=== PATIENT | female | born 1965 | race Two or more races ===

== ENCOUNTER 2019-10-14 21:43 | Inpatient (IN) | payer OTHER ==
[~2019-10-14] VITALS: Ht 165.1 cm; Wt 74.8 kg
[2019-10-14] MEDS ORDERED: ACTIVATED CHARCOAL 25 GM/120 ML TUBE PO ONE (22:00)
--- NOTE | 2019-10-14 22:01 | NUR ---
PT BENNETT 88 & [employer] FROM HOME C/O "TOOK NORCO 5, BENADRYL 25 MG & ASPIRIN" PT DENIES SI AND HI. STATES SHE DOES NOT KNOW HOW MANY PILL SHE TOOK. RR EVEN AND UNLABORED, NO ACUTE DISTRESS NOTED. -N/V. [employer] AT BEDSIDE SPEAKING TO PT.
[2019-10-14] MEDS ORDERED: ACTIVATED CHARCOAL 25 GM/120 ML TUBE ONE (22:05)
[2019-10-14 22:07] LABS: BASOPHILS % (AUTO) 0.7 % (0.0-2.0); EOSINOPHILS % (AUTO) 2.1 % (0.0-6.0); HEMATOCRIT 42 % (33-45); LYMPHOCYTES # (AUTO) 1.5 /CMM (0.8-4.8); LYMPHOCYTES % (AUTO) 26.8 % (20.0-44.0); MEAN CORPUSCULAR HGB CONC 33 g/dl (31.0-36.0); MEAN CORPUSCULAR VOLUME 96 fL (82-100); MONOCYTES # (AUTO) 0.8 /CMM (0.1-1.30); MONOCYTES % (AUTO) 13.2 % (2.0-12.0); NEUTROPHILS # (AUTO) 3.3 /CMM (1.8-8.9); NEUTROPHILS % (AUTO) 57.2 % (43.0-81.0); PLATELET COUNT (AUTO) 208 /CMM (150-450); RED BLOOD CELL COUNT(AUTO) 4.38 MIL/uL (4.0-5.2); WHITE BLOOD COUNT (AUTO) 5.8 K/uL (4.3-11.0)
--- NOTE | 2019-10-14 22:08 | NUR ---
PT PROVIDED URINE SAMPLE. SENT TO LAB.
[2019-10-14 22:17] LABS: APPEARANCE,URINE Clear (CLEAR); BILIRUBIN,URINE Negative (NEGATIVE); BLOOD, URINE Negative Ery/uL (NEGATIVE); COLOR,URINE Yellow (YELLOW); KETONES,URINE Negative (NEGATIVE); LEUKOCYTE ESTERASE ,URINE Negative (NEGATIVE); NITRITE, URINE Negative (NEGATIVE); PH,URINE 5.5 (5.0-8.0); PROTEIN,URINE Negative (NEGATIVE); UGLUCOSE Negative (NEGATIVE)
[2019-10-14 22:23] LABS: ALBUMIN 4.4 g/dL (3.4-5.0); BILIRUBIN,DIRECT 0.1 mg/dL (0.0-0.2); BILIRUBIN,TOTAL 0.4 mg/dL (0.2-1.0); CALCIUM, SERUM 9.2 mg/dL (8.5-10.1); CREATININE 0.9 mg/dL (0.6-1.3); POTASSIUM 3.6 mmol/L (3.5-5.1); TOTAL PROTEIN, SERUM 8.3 g/dL (6.4-8.2)
[2019-10-14 22:24] LABS: SALICYLATE 1.4 mg/dL (2.8-20.0)
[2019-10-14] MEDS ORDERED: ACETYLCYSTEINE IV 6,000 MG/30 ML VIAL IV ONE (22:43)
[2019-10-14] MEDS ORDERED: D5W IV ONE (23:00)
[2019-10-14] MEDS ORDERED: ACETYLCYSTEINE IV ONE (23:00)
[2019-10-14] MEDS ORDERED: IV NS 0.9% 2,000 ML IV ONE (23:00)
--- NOTE | 2019-10-14 23:12 | NUR ---
PT SAT 93% ON ROOM AIR. PER MD PLACED ON 2L NC SAT 99% NOW. VSS.
--- NOTE | 2019-10-14 23:14 | NUR ---
PT RESTING IN BED, DENIES PAIN, STATES SHE FEELS SLEEPY. VSS.
[2019-10-14] MEDS ORDERED: AMLO2.5T4 PO (23:22)
[2019-10-14] MEDS ORDERED: CHOL400T11 GT (23:22)
[2019-10-14] MEDS ORDERED: CITA10TA9 PO (23:22)
[2019-10-14] MEDS ORDERED: CITA10SO3 PO (23:22)
--- NOTE | 2019-10-14 23:22 | NUR ---
MED RECON DONE. PT UNABLE TO GIVE DOSE OF MEDS.
--- NOTE | 2019-10-14 23:44 | NUR ---
SPOKE TO BROTHER, UPDATED W/ PLAN OF CARE.
--- NOTE | 2019-10-14 23:58 | NUR ---
PATIENT AMBULATED TO THE RESTROOM WITH ASSISTANCE
--- NOTE | 2019-10-15 | NUR ---
DR. DE ANDA ON PHONE WITH DR. RODRIGUEZ
--- NOTE | 2019-10-15 00:13 | NUR ---
TELE BED 308-0
--- NOTE | 2019-10-15 00:23 | NUR ---
REPORT GIVEN TO MITALI GIANG FOR KIRAN
[2019-10-15 00:30] VITALS: BP 118/73
[2019-10-15] MEDS ORDERED: ACETYLCYSTEINE IV 3,400 MG in IV D5W 500 ML IV SCH (00:30)
[2019-10-15] MEDS ORDERED: Z GUARD REMEDY 2 OZ OINT TP PRN (00:30)
[2019-10-15] MEDS ORDERED: ZOLPIDEM TARTRATE 5 MG TABLET PO PRN (00:30)
[2019-10-15] MEDS ORDERED: MAG HYDROX/AL HYDROX/SIMETH 30 ML UDC PO PRN (00:30)
[2019-10-15] MEDS ORDERED: MAGNESIUM HYDROXIDE 30 ML UDC PO PRN (00:30)
--- NOTE | 2019-10-15 00:34 | NUR ---
PT TRANSFERED PER ACLS PROTOCOL
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
--- NOTE | 2019-10-15 02:25 | NUR ---
TELE/RN NOTES: PT. STARTED THROWING UP CHARCOAL BLACK EMESIS DUE TO ADMINISTRATION OF ACTIVATED CHARCOAL 25MG IN ER EARLIER. CHARGE NURSE AWARE. NO C/O OF PAIN AT THIS TIME.
[2019-10-15] MEDS ORDERED: ACETYLCYSTEINE 20% SOLN 800 MG/4 ML VIAL ONE (02:40)
[2019-10-15] MEDS ORDERED: ACETYLCYSTEINE 10% SOLN 400 MG/4 ML VIAL ONE (02:41)
[2019-10-15 04:00] VITALS: BP 122/78
--- NOTE | 2019-10-15 04:09 | NUR ---
TELE/ RN NOTES: POISON CONTROL CALLED REGARDING PT'S CURRENT CONDITION AND HER LAB LEVELS. RECOMMENDED TYLENOL LEVELS, LIVER FUNCTION AND COAGS LAB DRAW. DR. RODRIGUEZ MADE AWARE.
--- NOTE | 2019-10-15 04:22 | NUR ---
TELE/RN NOTES: DR. RODRIGUEZ ORDERED BMP, CBC, INR, LIVER FUNCTION AND ACETAMINOPHEN LEVELS.
[2019-10-15] MEDS ORDERED: ACETYLCYSTEINE IV 6,800 MG in IV D5W 1,000 ML IV SCH (04:30)
[2019-10-15 06:33] LABS: BASOPHILS % (AUTO) 0.2 % (0.0-2.0); EOSINOPHILS % (AUTO) 0.1 % (0.0-6.0); HEMATOCRIT 40 % (33-45); HEMOGLOBIN 13.2 g/dL (11.5-14.8); LYMPHOCYTES # (AUTO) 0.4 /CMM (0.8-4.8); LYMPHOCYTES % (AUTO) 8.4 % (20.0-44.0); MEAN CORPUSCULAR HGB CONC 33 g/dl (31.0-36.0); MEAN CORPUSCULAR VOLUME 96 fL (82-100); MONOCYTES # (AUTO) 0.4 /CMM (0.1-1.30); MONOCYTES % (AUTO) 8.5 % (2.0-12.0); NEUTROPHILS % (AUTO) 82.8 % (43.0-81.0); PLATELET COUNT (AUTO) 186 /CMM (150-450); RED BLOOD CELL COUNT(AUTO) 4.11 MIL/uL (4.0-5.2); WHITE BLOOD COUNT (AUTO) 4.8 K/uL (4.3-11.0)
[2019-10-15 06:41] LABS: CALCIUM, SERUM 7.5 mg/dL (8.5-10.1); CREATININE 0.7 mg/dL (0.6-1.3)
[2019-10-15 06:46] LABS: ALBUMIN 3.8 g/dL (3.4-5.0); BILIRUBIN,DIRECT 0.1 mg/dL (0.0-0.2); BILIRUBIN,TOTAL 0.3 mg/dL (0.2-1.0); TOTAL PROTEIN, SERUM 7.5 g/dL (6.4-8.2)
--- NOTE | 2019-10-15 06:58 | NUR ---
TELE/RN CLOSING NOTES: PT. IN BED RESTING COMFORTABLY. ON 2 L OF OXYGEN VIA NC. SATURATING AT 98%. NO SOB NOTED, NO S/S OF ACUTE DISTRESS, BREATHING EVEN AND UNLABORED. REMAINS A/OX3-4, VERBALLY RESPONSIVE AND ABLE TO MAKE NEEDS KNOWN. STILL LETHARGIC AND DROWSY. NO SIGNIFICANT CHANGES IN CONDITION. DENIES PAIN AT THIS TIME. ON TELE MONITORING WITH READING OF SR HR ON THE 80S. ABLE TO AMBULATE WITH UNSTEADY GAIT. REQUIRES ASSISTANCE. MAINTAINED NPO STATUS. IV PRESENT ON THE RIGHT AC #20G AND LEFT WRIST #18G. CURRENTLY INFUSING MUCOMYST 3400MG IN D5W 500ML. VSS. DENIES SI AND HI. SITTER PRESENT AT BEDSIDE AT THIS TIME. ON ASPIRATION PRECAUTIONS, BED ALARM ON. SAFETY MEASURES INITIATED. BED IN LOW, LOCKED POSITION WITH HOB ON SEMI FOWLERS. SR UPX2. CALL LIGHT WITHIN REACH. WILL ENDORSE TO DAY SHIFT RN FOR KIRAN.
[2019-10-15] MEDS ORDERED: BECL10.6 INH (07:16)
[2019-10-15] MEDS ORDERED: AMLO10TA7 PO (07:16)
[2019-10-15] MEDS ORDERED: FAMO40TA7 PO (07:16)
[2019-10-15] MEDS ORDERED: CITA20TA16 PO (07:16)
[2019-10-15] MEDS ORDERED: LEVO88TA5 PO (07:16)
[2019-10-15] MEDS ORDERED: ERGO500014 PO (07:16)
[2019-10-15] MEDS ORDERED: PANTOPRAZOLE 40 MG TABLET.DR PO SCH (07:30)
--- NOTE | 2019-10-15 07:30 | NUR ---
RN OPENING NOTE Patient is resting in bed, A/O x2-3, showing no signs of acute distress or SOB, saturating >95% on 2L NC. IV lines are clean and intact, flushing well. Patient stated she has no thoughts of killing herself and stated, "I did something very stupid. I don't know why I did it." Sitter is at the bedside. Bed is in lowest position, side rails x3 in upright position, call light is within reach, fall safety and aspiration precautions enforced. Will continue with plan of care.
[2019-10-15 08:00] VITALS: BP 118/69
[2019-10-15] MEDS ORDERED: D5W IV ONE (08:00)
[2019-10-15] MEDS ORDERED: ACETYLCYSTEINE IV ONE (08:00)
--- NOTE | 2019-10-15 10:43 | NUR ---
RN NOTE Patient had episode of both hands hyperflexed, stiff, and patient reports tingling in both hands, similar to Trousseau's sign, that resolved after 4 minutes. Bilateral feet shows no abnormality, patient reports she feels sensation and no tingling in her feet. Her speech is intact, no change in LOC, no weakness on either side of her upper and lower extremities. Vital signs are stable, jessica MARTE.
[2019-10-15] MEDS: PANTOPRAZOLE 40 MG VIAL IV SCH (10:53)
[2019-10-15] MEDS: ONDANSETRON HCL/PF 4 MG/2 ML VIAL IVP PRN ×2 (11:01→17:08)
[2019-10-15] MEDS: POTASSIUM CL. PREMIX PERIPHER. 50 ML IV SCH ×6 (11:02→16:20)
[2019-10-15] MEDS: IV D5/0.45 NACL 1,000 ML IV PRN (11:02)
[2019-10-15 12:00] VITALS: BP 123/85
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
[2019-10-15 16:00] VITALS: BP 135/84
--- NOTE | 2019-10-15 19:52 | NUR ---
RN CLOSING NOTE Patient is resting in bed, A/O x4 showing no signs of acute distress or SOB, saturating >95% on 2L NC. Patient has no complaints of pain throughout shift, only N/V, IV Zofran given PRN as ordered. IV line in the RAC #20g is clean and intact, LFA #18g is clean and intact running Acetedote 7,500 mg @ 64.844 ml/hour for 16 hours. Patient is ambulatory with standy-by assist to the bathroom. Sitter is at the bedside. Bed is in lowest position, side rails x3 in upright position , call light is within reach and patient is aware of how to call for assistance when needed. Will endorse to material handler 2nd shift.
--- NOTE | 2019-10-15 19:53 | NUR ---
TELE/RN OPENING NOTES: RECEIVED A PT. IN BED A/OX4, AWAKE, VERBALLY RESPONSIVE AND ABLE TO MAKE NEEDS KNOWN. ON 2 L OF OXYGEN VIA NC. SATURATING AT 98%. NO SOB NOTED, NO S/S OF ACUTE DISTRESS, BREATHING EVEN AND UNLABORED. DENIES PAIN AT THIS TIME. ON TELE MONITORING WITH READING OF SR HR ON THE 80S. AMBULATORY WITH STEADY GAIT. SITTER AT BEDSIDE. PER PT "I FEEL BETTER THAN YESTERDAY" IV PRESENT ON THE RIGHT AC #20G AND LEFT WRIST #18G. WITH ACETADOTE 7,500MG RUNNING AT @ 64.844MLS/HR. DENIES SI AND HI. ON ASPIRATION PRECAUTIONS, BED ALARM ON. SAFETY MEASURES INITIATED. BED IN LOW, LOCKED POSITION WITH HOB ON SEMI FOWLERS. SR UPX2. CALL LIGHT WITHIN REACH. WILL CONTINUE TO MONITOR PT. ACCORDINGLY AND CONTINUE PLAN OF CARE.
[2019-10-15 20:00] VITALS: BP 141/86
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
[2019-10-15] MEDS: CITALOPRAM HYDROBROMIDE 10 MG TABLET PO SCH (21:40)
--- NOTE | 2019-10-15 22:00 | NUR ---
MS/RN NOTES: POISON CONTROL CALLED TO GET UPDATES REGARDING PT'S CONDITION AND LABS. PER POISON CONTROL, "WHEN THE 3RD BAG OF ACETADOTE INFUSED COMPLETELY, WE RECOMMEND REPEAT AST AND ALT, TYLENOL LEVELS, LIVER FX TEXT, AND INR. IF THERE NO IMPROVEMENT, WE RECOMMEND ANOTHER 16 HR BAG OF ACETADOTE." DR. RODRIGUEZ INFORMED. WILL WAIT FOR ORDERS. Addendum: 10/16/19 at 0105 by MITALI EVANS RN AVANI/PADMAJA NOTES
[2019-10-16] VITALS: BP_SYST 151; BP_DIAS 57; BP_DIAS 87
--- NOTE | 2019-10-16 01:18 | NUR ---
TELE/RN NOTES: DR. RODRIGUEZ ORDERED FOR LABS IN THE MORNING. (ACETAMINOPHEN LEVELS, INR).
[2019-10-16] MEDS: IV D5/0.45 NACL 1,000 ML IV PRN ×3 (03:55→20:06)
[2019-10-16 04:00] VITALS: BP 142/82
[2019-10-16 07:05] LABS: BASOPHILS % (AUTO) 0.2 % (0.0-2.0); EOSINOPHILS % (AUTO) 0.9 % (0.0-6.0); HEMATOCRIT 41 % (33-45); HEMOGLOBIN 13.9 g/dL (11.5-14.8); LYMPHOCYTES # (AUTO) 0.8 /CMM (0.8-4.8); LYMPHOCYTES % (AUTO) 15.9 % (20.0-44.0); MEAN CORPUSCULAR HGB CONC 34 g/dl (31.0-36.0); MEAN CORPUSCULAR VOLUME 96 fL (82-100); MONOCYTES # (AUTO) 0.7 /CMM (0.1-1.30); MONOCYTES % (AUTO) 14.4 % (2.0-12.0); NEUTROPHILS # (AUTO) 3.4 /CMM (1.8-8.9); NEUTROPHILS % (AUTO) 68.6 % (43.0-81.0); PLATELET COUNT (AUTO) 186 /CMM (150-450); RED BLOOD CELL COUNT(AUTO) 4.29 MIL/uL (4.0-5.2); WHITE BLOOD COUNT (AUTO) 4.9 K/uL (4.3-11.0)
[2019-10-16 07:18] LABS: THYROID STIMULATING HORMONE 2.329 uIU/mL (0.358-3.74)
[2019-10-16 07:20] LABS: BILIRUBIN,DIRECT 0.2 mg/dL (0.0-0.2); BILIRUBIN,TOTAL 0.8 mg/dL (0.2-1.0); CALCIUM, SERUM 8.9 mg/dL (8.5-10.1); CREATININE 0.7 mg/dL (0.6-1.3); MAGNESIUM 1.7 mg/dL (1.8-2.4); PHOSPHORUS 3.2 mg/dL (2.5-4.9); TOTAL PROTEIN, SERUM 7.9 g/dL (6.4-8.2)
--- NOTE | 2019-10-16 07:21 | NUR ---
TELE/RN CLOSING NOTES: PT. IN BED RESTING COMFORTABLY. SATURATING AT 97% ON 2 L OF OXYGEN VIA NC. NO SOB NOTED, NO S/S OF ACUTE DISTRESS, BREATHING EVEN AND UNLABORED. REMAINS A/OX4, VERBALLY RESPONSIVE AND ABLE TO MAKE NEEDS KNOWN. DENIES PAIN AT THIS TIME. ON TELE MONITORING WITH READING OF SR HR ON THE 60S. ABLE TO AMBULATE WITH STEADY GAIT. IV PRESENT ON THE RIGHT AC #20G AND LEFT WRIST #18G. IVF RUNNING AT 125MLS/HR. DENIES SI AND HI. SITTER PRESENT AT BEDSIDE. ON ASPIRATION PRECAUTIONS, BED ALARM ON. SAFETY MEASURES KEPT IN PLACE. BED IN LOW, LOCKED POSITION WITH HOB ON SEMI FOWLERS. SR UPX2. CALL LIGHT WITHIN REACH. WILL ENDORSE TO DAY SHIFT RN FOR KIRAN.
[2019-10-16 07:38] LABS: POTASSIUM 2.3 mmol/L (3.5-5.1)
--- NOTE | 2019-10-16 07:50 | NUR ---
Kunal (Pharmacist of Poison Control) called and checked on the patient's lab results:Tylenol level :zero level and PT 10.2 and INR 0.98 with no new order.
[2019-10-16 08:00] VITALS: BP 126/77
--- NOTE | 2019-10-16 08:00 | NUR ---
TELE/RN AM NOTES: RECEIVED A PT. IN BED A/OX4, AWAKE, VERBALLY RESPONSIVE AND ABLE TO MAKE NEEDS KNOWN. SATURATING AT 99% ON ROOM AIR. NO SOB NOTED, NO S/S OF ACUTE DISTRESS, BREATHING EVEN AND UNLABORED. DENIES PAIN AT THIS TIME. ON TELE MONITORING WITH READING OF SB HR 58. AMBULATORY WITH STEADY GAIT. SITTER AT BEDSIDE. IVFD5 1/2 NS AT 125 ML/HR INFUSING WELL ON THE RIGHT AC #20G AND LEFT WRIST #18G. WITH 1:1 SITTER. DENIES SI AND HI. ON ASPIRATION PRECAUTIONS, BED ALARM ON. SAFETY MEASURES INITIATED. BED IN LOW, LOCKED POSITION WITH HOB ON SEMI FOWLERS. SR UPX2. CALL LIGHT WITHIN REACH. WILL CONTINUE TO MONITOR PT. ACCORDINGLY AND CONTINUE PLAN OF CARE.
[2019-10-16] MEDS: PANTOPRAZOLE 40 MG VIAL IV SCH (09:23)
[2019-10-16] MEDS: POTASSIUM CL. PREMIX PERIPHER. 50 ML IV SCH ×6 (09:23→16:56)
--- NOTE | 2019-10-16 11:51 | NUR ---
PT CAN'T TOLERATE POTASSIUM IV INFUSION AND ADJUSTED IV RATE ACCORDING TO PATIENT'S COMFORT.
[2019-10-16] MEDS: ONDANSETRON HCL/PF 4 MG/2 ML VIAL IVP PRN (14:00)
--- NOTE | 2019-10-16 14:00 | NUR ---
PT ATE 100% OF HER LUNCH TRAY (DOUBLE PORTION) REQUESTED AND PT VOMITED THE FOOD SHE ATE.ON CLEAR LIQUIDS ONLY. GAVE ZOFRAN IV FOR NAUSEA AND VOMITING.
[2019-10-16 16:00] VITALS: BP 135/78
[2019-10-16] MEDS: Magnesium 1GM/D5W 100ML PREMIX 100 ML IV SCH ×2 (18:22→19:48)
--- NOTE | 2019-10-16 18:56 | NUR ---
FIRST BAG OF MAGNESIUM STILL INFUSING WELL.WILL ADMINISTER 2ND BAG OF MAGNESIUM IV TO THE SECURITY RISK ANALYST.
[2019-10-16 20:00] VITALS: BP 139/83
--- NOTE | 2019-10-16 20:00 | NUR ---
RN NOTES RECEIVED PT. AWAKE ON BED, A/OX3, SITTER AT BEDSIDE, CALM AND COOPERATIVE, DENIES PAIN, NO SOB, CALL LIGHT WITHIN REACH, [id number], CONTINUE TO MONITOR
[2019-10-16] MEDS: CITALOPRAM HYDROBROMIDE 10 MG TABLET PO SCH (21:27)
--- NOTE | 2019-10-16 22:45 | NUR ---
RN NOTES NEW IV LINE INSERTED ON THE RIGHT FOREARM # 20
[2019-10-17] VITALS: BP 134/75
[2019-10-17 04:00] VITALS: BP 132/73
[2019-10-17] MEDS: IV D5/0.45 NACL 1,000 ML IV PRN (05:00)
[2019-10-17 07:01] LABS: CALCIUM, SERUM 8.4 mg/dL (8.5-10.1); CREATININE 0.7 mg/dL (0.6-1.3); MAGNESIUM 2.1 mg/dL (1.8-2.4)
[2019-10-17 07:06] LABS: POTASSIUM 2.8 mmol/L (3.5-5.1)
[2019-10-17 08:00] VITALS: BP 125/79
--- NOTE | 2019-10-17 08:00 | NUR ---
TELE/RN AM NOTES: RECEIVED A PT. IN BED A/OX4, AWAKE, VERBALLY RESPONSIVE AND ABLE TO MAKE NEEDS KNOWN. SATURATING AT 99% ON ROOM AIR. NO SOB NOTED, NO S/S OF ACUTE DISTRESS, BREATHING EVEN AND UNLABORED. DENIES PAIN AT THIS TIME. ON TELE MONITORING WITH READING OF SR HR 67. AMBULATORY WITH STEADY GAIT. SITTER AT BEDSIDE. IVFD5 1/2 NS AT 125 ML/HR INFUSING WELL ON THE RIGHT AC #20G AND LEFT WRIST #18G. WITH 1:1 SITTER. DENIES SI AND HI. ON ASPIRATION PRECAUTIONS, BED ALARM ON. SAFETY MEASURES INITIATED. BED IN LOW, LOCKED POSITION WITH HOB ON SEMI FOWLERS. SR UPX2. CALL LIGHT WITHIN REACH. WILL CONTINUE TO MONITOR PT. ACCORDINGLY AND CONTINUE PLAN OF CARE.
[2019-10-17] MEDS: PANTOPRAZOLE 40 MG VIAL IV SCH (09:02)
[2019-10-17] MEDS: POTASSIUM CL. PREMIX PERIPHER. 50 ML IV SCH ×4 (10:43→14:33)
--- NOTE | 2019-10-17 16:40 | NUR ---
DISCHARGED PT HOME WITH STABLE V/S.DISCHARGE INSTRUCTIONS GIVEN.IV H/L TO RFA REMOVED WITH NO BLEEDING/NO SWELLING ON THE IV SITE NOTED. DENIES ANY PAIN/DISTRESS AND IS JUST VERY EXCITED TO GO HOME.
== END 2019-10-17 16:42 | disposition home or self-care (01) | DRG 817 ==
LOC: ER 21:45 → TELE 10-15 00:17
PROVIDERS: ADMIT Nurse Practitioner Acute Care; ATTEND Nurse Practitioner Acute Care
DX: T40.2X2A Poisoning by other opioids, intentional self-harm, initial encounter (principal); E83.42 Hypomagnesemia; F33.1 Major depressive disorder, recurrent, moderate; E87.6 Hypokalemia; E89.0 Postprocedural hypothyroidism; Y92.009 Unspecified place in unspecified non-institutional (private) residence as the place of occurrence of the external cause; I10 Essential (primary) hypertension; J45.909 Unspecified asthma, uncomplicated; Y90.8 Blood alcohol level of 240 mg/100 ml or more; F10.129 Alcohol abuse with intoxication, unspecified; Z88.8 Allergy status to other drugs, medicaments and biological substances; T45.0X2A Poisoning by antiallergic and antiemetic drugs, intentional self-harm, initial encounter; T39.1X2A Poisoning by 4-Aminophenol derivatives, intentional self-harm, initial encounter; Z82.3 Family history of stroke
CPT/HCPCS: 36415; 80048-TC; 80061-TC; 80076-TC; 80305; 81000-TC; 83735-TC; 84100-TC; 84132-TC; 84443-TC; 85025-TC; 85610-TC; 87081-TC; C9113; G0378; G0480; J0132; J2405; J3475; J3480; J3490; J7030; J7060; J7070

== ENCOUNTER 2023-03-20 23:59 | Emergency (ER) | payer OTHER ==
[~2023-03-20] VITALS: Ht 165.1 cm; Wt 68.0 kg
[~2023-03-20 23:59] MED LIST: AMLO-213 PO; BECL10.6 INH; CITA20TA16 PO; ERGO500093 PO; FAMO40TA7 PO; LEVO88TA5 PO
[2023-03-21 00:03] VITALS: BP 135/89; TEMP 97.7
[2023-03-21] MEDS ORDERED: TDAP [DIPH/PERTUSSIS/TET] 0.5 ML VIAL IM ONE (00:53)
[2023-03-21] MEDS: TDAP [DIPH/PERTUSSIS/TET] 0.5 ML VIAL IM ONE (01:00)
[2023-03-21 01:01] VITALS: O2SAT 98
== END 2023-03-21 01:01 | disposition home or self-care (01) ==
LOC: ER 03-21 00:06
DX: S81.811A Laceration without foreign body, right lower leg, initial encounter (principal); I10 Essential (primary) hypertension; J45.909 Unspecified asthma, uncomplicated; F32.A Depression, unspecified; E03.9 Hypothyroidism, unspecified; Z88.6 Allergy status to analgesic agent; Z60.2 Problems related to living alone; W20.8XXA Other cause of strike by thrown, projected or falling object, initial encounter; Y93.89 Activity, other specified; Y92.89 Other specified places as the place of occurrence of the external cause; Y99.8 Other external cause status
CPT/HCPCS: 12001; 90471; 90715; 99283; A6403